=== PATIENT | male | born 1945 | race African-American/Black ===

== ENCOUNTER 2018-06-30 10:32 | Emergency (ER) | payer MEDICARE, OTHER ==
[~2018-06-30] VITALS: Ht 177.8 cm; Wt 86.0 kg
[~2018-06-30 10:32] MED LIST: ACET-3161 PO
[2018-06-30] MEDS ORDERED: HYDROCODONE/ACETAMINOPHEN 5/325MG TABLET PO ONE (11:30)
[2018-06-30] MEDS ORDERED: LORAZEPAM 1MG TABLET PO ONE (12:30)
[2018-06-30] MEDS ORDERED: MORPHINE SULFATE 10 MG/ML CPJ IM ONE (12:30)
[2018-06-30] MEDS ORDERED: PROPOFOL 200MG/20ML VIAL IV ONE (14:45)
[2018-06-30 22:38] VITALS: BP 141/77
== END 2018-06-30 23:00 | disposition home or self-care (01) ==
LOC: ER 10:32
DX: S43.085A Other dislocation of left shoulder joint, initial encounter (principal); S09.8XXA Other specified injuries of head, initial encounter; W06.XXXA Fall from bed, initial encounter; Y93.89 Activity, other specified; Y92.013 Bedroom of single-family (private) house as the place of occurrence of the external cause; R03.0 Elevated blood-pressure reading, without diagnosis of hypertension
CPT/HCPCS: 23650; 70450; 73030; 96372; 99152; 99285; J2270; J2704

== ENCOUNTER 2021-01-08 09:41 | Emergency (ER) | payer MEDICARE, OTHER ==
[~2021-01-08] VITALS: Ht 185.4 cm; Wt 68.0 kg
[2021-01-08] MEDS ORDERED: IPRATROPIUM BROMIDE (0.02%) 0.5MG/2.5ML NEB HHN SCH (10:30)
[2021-01-08] MEDS ORDERED: ALBUTEROL (0.083%) 2.5MG/3ML NEB HHN SCH (10:30)
[2021-01-08 10:56] LABS: BASOPHILS % 0.5 % (0.0-2.0); EOSINOPHILS % 3.8 % (0.0-5.0); HEMATOCRIT. 39.4 % (42.0-52.0); HEMOGLOBIN. 12.8 g/dL (14.0-18.0); LYMPHOCYTES % 36.7 % (20.0-50.0); MEAN CORPUSCULAR HEMOGLOBIN 29.1 pg (28.0-32.0); MEAN CORPUSCULAR VOLUME 89.6 fL (80.0-94.0); MEAN PLATELET VOLUME 8.2 fl (7.4-10.4); MONOCYTES % 6.8 % (2.0-8.0); NEUTROPHILS % 52.2 % (40.0-76.0); PLATELET 347 x1000/uL (130-400); RED BLOOD CELL COUNT 4.39 mill/uL (4.7-6.1); RED CELL DISTRIBUTION WIDTH 13.2 % (11.6-14.6)
[2021-01-08 11:04] LABS: CHLORIDE 100 mEq/L (98-107)
[2021-01-08 11:11] LABS: INR 1.1; PROTHROMBIN TIME 11.6 sec (9.6-11.0)
[2021-01-08] MEDS ORDERED: KCL 20MEQ/100ML PREMIX 100 ML IV ONE ×2 (12:00)
[2021-01-08] MEDS ORDERED: POTASSIUM CHLORIDE 20MEQ TABLET SR PO SCH (12:00)
[2021-01-08] MEDS ORDERED: CEFTRIAXONE 1 G PREMIX 50 ML IV SCH (12:45)
[2021-01-08] MEDS ORDERED: POTASSIUM CHLORIDE INJ 40 MEQ in DEXT 5% WATER 250 ML IV SCH (13:00)
[2021-01-08] MEDS ORDERED: AZITHROMYCIN 500MG/250ML 250 ML IV SCH (13:00)
[2021-01-08 19:50] VITALS: BP 140/102
== END 2021-01-08 20:27 | disposition short-term general hospital (02) ==
LOC: ER 09:44 → CMPBEDREQ 21:12
DX: J18.9 Pneumonia, unspecified organism (principal); R06.00 Dyspnea, unspecified; E87.6 Hypokalemia; Z20.822 Contact with and (suspected) exposure to COVID-19
CPT/HCPCS: 36415; 71045; 71250; 80053; 83605; 83880; 84145; 84484; 85025; 85610; 87040; 87426; 93005; 94640; 96365; 96366; 96368; 99285; J0456; J0696; J3480; J7060